=== PATIENT | female | born 1950 | race Caucasian/White ===

== ENCOUNTER → 2017-08-30 | Outpatient (CLI) | payer OTHER ==
[2017-08-30] VITALS (13 sets, daily range): BP systolic 107–145; BP diastolic 45–75
[~2017-08-30] VITALS: Ht 154.9 cm; Wt 77.1 kg
[~2017-08-30] MED LIST: ASPIRIN325 PO; CARVEDILOL12.5 MG PO; CLONIDINE0.1 PO; IMDUR 30 MG TAB30 M1 PO; LASIX 40 MG TAB40 M2 PO; LEXAPRO20 MG; NITROGLYCERIN0.4 MG SUBLING; NORVASC 2.5 MG2.5 M1; NORVASC10 MG PO; OMEPRAZOLE40 MG PO; PAXIL10 MG PO; POLYMYXIN B/TMP10 ML OP; PRINIVIL20 MG PO; VITAMIN D250000 UNIT PO; XANAX 0.5 MG0.5 MG PO; ZANTAC 150MG T150 MG PO
[2017-08-30 08:25] LABS: HEMATOCRIT 37.8 % (37.0-47.0); HEMOGLOBIN 13.1 gm/dL (12.0-15.0); MCH 30.1 pg (26.0-34.0); MCHC 34.7 g/dL (28.0-37.0); MCV 86.6 fL (80.0-100.0); MPV 8.4 fl. (7.2-11.1); RBC 4.36 mil/uL (4.20-5.00); WBC 8.3 thou/uL (4.0-11.0)
[2017-08-30 08:36] LABS: PROTIME 9.4 Seconds (9.20-11.50)
[2017-08-30 08:37] LABS: ANION GAP 9 mmol/L (7-16); BUN 22 mg/dL (7-18); CALCIUM 8.8 mg/dL (8.5-10.1); CHLORIDE 109 mmol/L (98-107); CO2 27 mmol/L (21-32); CREATININE 0.8 mg/dL (0.6-1.3); GLUCOSE 131 mg/dL (70-99); POTASSIUM 3.5 mmol/L (3.5-5.1); SODIUM 145 mmol/L (136-145)
[2017-08-30 08:42] LABS: ALBUMIN 3.9 g/dL (3.4-5.0); ALKALINE PHOSPHATASE 85 U/L (46-116); CHOLESTEROL 180 mg/dL (<200); HDL CHOLESTEROL 43 mg/dL (>40); LDL CHOLESTEROL 108 mg/dL (<100); SERUM ASSESSMENT Clear; SGOT 15 U/L (15-37); SGPT 22 U/L (30-65); TC:HDL 4.2 Ratio (Not establshd); TOTAL BILIRUBIN 0.4 mg/dL (<0.1-1.0); TRIGLYCERIDE 145 mg/dL (<150); VLDL 29 mg/dL (<40)
--- NOTE | 2017-08-30 16:18 | EKG ---
[place] [address] ELECTROCARDIOGRAM REPORT Name: MARIA ELENA MOLINA Room: [facility]#: [id number] Admission: 08/30/17 Attend Phys: Tha Rodas MD, Discharge: Date of : 54 Report #: [id number] THIS REPORT FOR: //name// [facility] Test Date: 2017-08-30 Test Time: 08:53:45 Pat Name: MARIA ELENA MOLINA Department: Room: Gender: F [employer] Field Agent: : 1950 Requested By: Tha Rodas Order Number: [id number] Reading MD: Tha Rodas Measurements Intervals [place] Rate: 65 P: 56 DE: 158 QRS: 21 QRSD: 108 T: 18 QT: 431 QTc: 449 Interpretive Statements Sinus rhythm Compared to ECG 09/11/2015 15:06:08 ST (T wave) deviation no longer present Electronically Signed On 08-30-2017 16:18:25 [employer] by Tha Rodas [email or web address] <ELECTRONICALLY SIGNED> By: Tha Rodas MD, [facility] 08/30/17 1618 [id number] Tha Rodas MD, FACC /EPI
--- NOTE | 2017-08-30 17:00 | CARD ---
[address] [address] CARDIAC CATH REPORT Name: MARIA ELENA MOLINA Room: [facility]#: [id number] Admission: 08/30/17 Attend Phys: Tha Rodas MD, Discharge: Date of : 54 Report #: [id number] THIS REPORT FOR: //name// APPROVED REPORT Patient Details Patient Status: Out-Patient Room #: The patient is a 67 year-old female Event Personnel Dr. Rodas Procedures Performed Left heart catheterization left ventricular and selective coronary arteriography Indication Chest pain Risk Factors Arterial Hypertension, Family History Procedure Narrative The patient was brought electively to the Cardiac Catheterization Laboratory and was prepped and draped in a sterile manner. The right femoral was infiltrated with 1% Lidocaine subcutaneous anesthesia. A 6 Polish sheath was inserted into the right femoral artery. Coronary angiography was performed using coronary diagnostic catheters. The right coronary system was accessed and visualized with a Diagnostic catheter. The left coronary system was accessed and visualized with a Diagnostic catheter. The left ventricle was accessed and visualized with a Diagnostic catheter. Left ventricular/Aortic Valve gradient assessed via catheter pullback. Left ventriculogram was performed in COLIN projection. Pre-demployment femoral angiogram was performed . Closure device was deployed with a 6 Fr Mynx. The patient tolerated the procedure well and there were no complications associated with the procedure. There was no hematoma. Diagnostic Cath Left Main 0% narrowing LAD 20% mid vessel narrowing Circumflex Codominant vessel with 0% narrowing Right Coronary Small but codominant vessel with 0% narrowing Ramus 30- 40% proximal narrowing of a small ramus intermedius [address] [address] CARDIAC CATH REPORT Name: MARIA ELENA MOLINA [id number] Admission: 08/30/17 Attend Phys: Tha Rodas MD, Discharge: Date of : 54 Report #: [id number] Left Ventriculography The left ventricle is normal in size with normal contractility. The left ventricular ejection fraction is estimated to be 60%. Left ventricular wall motion abnormalities are not present. There is no mitral insufficiency. Hemodynamics The aortic pressure is 140/70 mmHg with a mean of 85 mmHg. The left ventricular pressure is 140/8 end-diastolic mmHg with a mean of mmHg. The left ventricular end diastolic pressure is 8 mmHg. There was no gradient across the aortic valve upon pullback. Conclusion #1 mild coronary artery disease characterized by the following: A 20% mid LAD narrowing, B 30-40% narrowing of the proximal portion of a small ramus intermedius branch, C normal left main codominant circumflex and codominant right coronary arteries #2 normal left-sided hemodynamics study, #3 normal left ventricular systolic function, estimated ejection fraction being 60%. Recommendations Cardiac Risk Reduction Program <ELECTRONICALLY SIGNED> By: Tha Rodas MD, [facility] 08/30/171699 99 99Johannah Rodas MD, [facility] /INF
== END | disposition home or self-care (01) ==
LOC: M.CL 07:30
PROVIDERS: Internal Medicine
DX: I25.10 Atherosclerotic heart disease of native coronary artery without angina pectoris (principal); I10 Essential (primary) hypertension; E78.5 Hyperlipidemia, unspecified; Z90.49 Acquired absence of other specified parts of digestive tract; Z90.710 Acquired absence of both cervix and uterus; Z98.890 Other specified postprocedural states; Z88.0 Allergy status to penicillin; Z79.899 Other long term (current) drug therapy

== ENCOUNTER → 2017-11-21 | Outpatient (CLI) | payer OTHER ==
--- NOTE | 2017-11-29 09:01 | SLEEP ---
[address] [address] SLEEP STUDY REPORT Name: MARIA ELENA MOLINA Room: [facility]#: [id number] Admission: 11/21/17 Attend Phys: Marley Prieto RN Discharge: Date of : 54 Report #: [id number] THIS REPORT FOR: //name// CC: Jay Prieto This study has been reviewed in its entirety by a board certified sleep specialist DATE OF SERVICE: 11/21/2017 REQUESTING PROVIDER: Marley Prieto, nurse practitioner. Polysomnography was performed. Study was done for complaints of daytime sleepiness. Does not feel rested in the morning. Snoring has been noted. Weight per the patient is 175 pounds. Vader sleepiness scale was 8/24. Total study time was 476 minutes. Total sleep time 369 minutes. 12% of the time was spent in REM sleep. Sleep efficiency 78%. During the study, there were total of 26 obstructive apneas and 1 mixed apnea. That resulted in a total of 27 apneas. There were 27 hypopneas. Total apnea-hypopnea index was 8.8. However, the apnea-hypopnea index for REM sleep was 46.7. The patient spent much of her time right-sided positioning with some additional time spent supine. There were 148 periodic limb movements noted. Only 9 of these were associated with an arousal. The PLMS arousal index was 1.5. Some snoring was noted. Lowest observed O2 saturation was 81%. However, overall her O2 saturations remained greater than 90%. IMPRESSION: 1. This study does reveal evidence of mild obstructive sleep apnea. However, the apnea-hypopnea index is markedly elevated during REM sleep. 2. Periodic limb movements noted. However, the majority of these were not associated with an arousal. RECOMMENDATIONS: 1. Given her sleep complaints, a return to the sleep lab for CPAP/BiPAP titration may be beneficial. 2. Achieve and maintain [place] [address] SLEEP STUDY REPORT Name: MARIA ELENA MOLINA Room: [facility]#: [id number] Admission: 11/21/17 Attend Phys: Marley Prieto RN Discharge: Date of : 54 Report #: [id number] 3. The patient should be counseled on driving and performing activities which require concentration until her sleep complaints are addressed. <ELECTRONICALLY SIGNED> By: Parminder Sanchez MD 11/29/17 0901 [id number] [id number] Quintero MD /nt
== END ==
LOC: M.SLEEPLAB 19:53
DX: G47.30 Sleep apnea, unspecified (principal); I10 Essential (primary) hypertension

== ENCOUNTER 2021-03-28 20:26 | Emergency (ER) | payer OTHER ==
[~2021-03-28] VITALS: Ht 157.5 cm; Wt 59.0 kg
[2021-03-28 21:18] LABS: ABSOLUTE LYMPHOCYTES 1.4 thou/uL (0.8-5.3); ABSOLUTE MONOCYTES 0.5 thou/uL (0.0-1.2); ABSOLUTE NEUTROPHILS 3.5 thou/uL (1.6-8.1); BASOPHILS 0.4 %; EOSINOPHILS 0.2 %; HEMATOCRIT 33.6 % (37.0-47.0); HEMOGLOBIN 11.9 gm/dL (12.0-15.0); LYMPHOCYTES 25.6 %; MCH 29.8 pg (26.0-34.0); MCHC 35.3 g/dL (28.0-37.0); MCV 84.3 fL (80.0-100.0); MONOCYTES 9.7 %; MPV 8.6 fl. (7.2-11.1); NUCLEATED RBCS 0 /100WBC; PLATELET COUNT* 189 thou/uL (150-400); POLYS 64.1 %; RBC 3.99 mil/uL (4.20-5.00); RDW-CV 13.1 % (10.5-14.5); WBC 5.4 thou/uL (4.0-11.0)
[2021-03-28 21:20] LABS: CALCIUM 8.5 mg/dL (8.5-10.1); CREATININE 0.8 mg/dL (0.6-1.3); POTASSIUM 4.1 mmol/L (3.5-5.1)
[2021-03-28 21:25] LABS: ALBUMIN 3.5 g/dL (3.4-5.0); TOTAL BILIRUBIN 0.6 mg/dL (<0.1-1.0); TOTAL PROTEIN 6.3 g/dL (6.4-8.2)
[2021-03-28 22:04] LABS: URINE BILIRUBIN NEGATIVE (Negative); URINE BLOOD NEGATIVE (Negative); URINE CLARITY CLEAR; URINE COLOR YELLOW; URINE GLUCOSE-RANDOM NEGATIVE (Negative); URINE KETONES 1+ (Negative); URINE LEUKOCYTES-REFLEX 1+ (Negative); URINE PROTEIN NEGATIVE (Negative); URINE SPECIFIC GRAVITY 1.015 (1.005-1.030)
[2021-03-28 22:05] LABS: URINE NITRITE-REFLEX POSITIVE (Negative)
[2021-03-28 22:10] LABS: BACTERIA-REFLEX >30 Many /HPF (None Seen); CASTS None Seen /LPF (None Seen); CRYSTALS None Seen /LPF (None Seen); SQUAMOUS 0-3 Few /LPF (0-3); URINE RBC 0-2 Rare /HPF (0-2); URINE WBC-REFLEX 0-5 Rare /HPF (0-5)
[2021-03-28] MEDS ORDERED: LEVOFLOXACIN750 MG PO (23:05)
[2021-03-28] MEDS ORDERED: PROAIR HFA8.5 GM INH (23:05)
[2021-03-28] MEDS ORDERED: ZOFRAN ODT4 MG PO (23:05)
[2021-03-28 23:12] VITALS: BP 142/70
== END 2021-03-28 23:12 | disposition home or self-care (01) ==
LOC: M.ERS 20:26
PROVIDERS: Emergency Medicine
DX: U07.1 COVID-19 (principal); J12.82 Pneumonia due to coronavirus disease 2019; J96.90 Respiratory failure, unspecified, unspecified whether with hypoxia or hypercapnia; N39.0 Urinary tract infection, site not specified; Z88.0 Allergy status to penicillin

== ENCOUNTER → 2021-06-23 | Outpatient (CLI) | payer OTHER ==
[~2021-06-23] MED LIST changes: +LEVOFLOXACIN750 MG PO; +PROAIR HFA8.5 GM INH; +ZOFRAN ODT4 MG PO
--- NOTE | 2021-06-23 16:06 | CARDNUC ---
[place] [address] CARDIAC NUCLEAR IMAGING REPORT Name: JASWINDERALEMARIA ELENA Room: [facility]#: [id number] Admission: 06/23/21 Attend Phys: Ralph Tinoco, Discharge: Date of : 54 Date of Service: 06/23/21 1605 Report #: [id number] THIS REPORT FOR: cc: Jay Luciano MD, Bruce D. MD Liston, Michael J. MD [facility] ~ APPROVED REPORT Study performed: 06/23/2021 11:08:28 Exam: Nuclear Stress Test Indication: Chest pain Patient Location: Out-Patient Stress Nurse: Elisabeth Samuels RN Ht: 5 ft 2 in Wt: 141 lbs BSA: 1.65 m2 BMI: 25.78 Medical History Medical History: HTN, post covid Medications: ntg, carvedilol, lisinopril, clonidine, Allergies: penicillin Cardiac Risk Factors: Age, FHX of CAD, HTN Exercise History: Sedentary Meds Held (24 hrs): carvedilol, ntg Stress Test Details Stress Test: Pharmacologic stress testing performed using 0.4 mg of regadenoson per 5 mL given IV over 10 seconds. Reason for pharmacologic stress test: physical limitation. HR Resting HR: 73 bpm Max Heart Rate (APMHR): 151 bpm Max HR Achieved: 96 bpm Target HR (85% APMHR): 128 bpm % of APMHR: 63 Recovery HR: 85 bpm BP Resting BP: 187/80 mmHg Max BP: 175/85 mmHg ECG Resting ECG: Sinus rhythm with incomplete left bundle branch block and nonspecific ST segment [place] [address] CARDIAC NUCLEAR IMAGING REPORT Name: MARIA ELENA MOLINA Room: [facility]#: [id number] Admission: 06/23/21 Attend Phys: Ralph Tinoco, Discharge: Date of : 54 Date of Service: 06/23/21 1605 Report #: [id number] Stress ECG: Sinus rhythm with incomplete left bundle branch block and nonspecific ST segment and T wave abnormalities. ST Change: None Arrhythmia: None Recovery ECG: Sinus rhythm with incomplete left bundle branch block and nonspecific ST segment and T wave abnormalities. Recovery ST Change: None Recovery Arrhythmia: None Clinical Reason for Termination: Completed protocol The patient tolerated Lexiscan infusion without significant cardiac complaint. Nurse Comments pt walks with cane and cannot walk on treadmill Stress ECG Conclusion Baseline twelve-lead EKG shows a sinus rhythm with incomplete left bundle branch block and nonspecific ST segment/T wave abnormalities. EKGs obtained during and post Lexiscan infusion show no significant ST segment changes. There were no stress-induced arrhythmias. NM EXAM: Myocardial Perfusion REST/STRESS Resting Data Rest SPECT myocardial perfusion imaging was performed in supine position 30 minutes following the intravenous injection of 10.3 mCi of Tc-99m Sestamibi. Time of rest injection: 10:00 The images were gated to evaluate regional wall motion and calculate left ventricular ejection fraction. Administration Route: IV Administration Site: Right AC Pharmacologic Stress Pharmacologic stress test was performed by injecting Regadenoson 0.4 mg IV push followed by the intravenous injection of 35.2 mCi of Tc-99m Sestamibi. Time of stress injection: 11:10 Administration Route: IV Administration Site: Right AC Heart Rate at time of stress injection: 96 bpm. Gated Stress SPECT was performed 60 minutes after stress injection. The images were gated to evaluate regional wall [place] [address] CARDIAC NUCLEAR IMAGING REPORT Name: MARIA ELENA MOLINA Room: [facility]#: [id number] Admission: 06/23/21 Attend Phys: Ralph Tinoco, Discharge: Date of : 54 Date of Service: 06/23/21 1605 Report #: [id number] left ventricular ejection fraction. Prone imaging was performed. Study Quality Study: Good Artifact: No artifact Study Data At rest, the left ventricular ejection fraction was 56%.. Post stress, the left ventricular ejection was 56%.. TID = 0.92. Perfusion Perfusion images obtained at rest and post Lexiscan stress show no significant defect to suggest infarct or ischemia. Wall Motion Global LV systolic function is preserved. There is a septal wall motion abnormality noted of uncertain significance. Nuclear Conclusion ECG Findings: non-diagnostic Clinical Findings: negative for ischemia Nuclear Findings: negative for ischemia Exercise Capacity: not assessed Left Ventricular Function: Preserved Risk Study: low Perfusion images show no defect to suggest infarct or ischemia. Left ventricular systolic function appears preserved. This is a low risk study. <Conclusion> Baseline twelve-lead EKG shows a sinus rhythm with incomplete left bundle branch block and nonspecific ST segment/T wave abnormalities. EKGs obtained during and post Lexiscan infusion show no significant ST segment changes. There were no stress-induced arrhythmias. <ELECTRONICALLY SIGNED> By: Ralph Tinoco MD, FACC 06/23/21 1605 1605 1605 Ralph Tinoco MD, FACC /INF
--- NOTE | 2021-06-23 16:42 | 2DMMODE ---
[place] [address] 2 D/M-MODE ECHOCARDIOGRAM Name: MARIA ELENA MOLINA Room: [facility]#: [id number] Admission: 06/23/21 Attend Phys: Ralph Tinoco, Discharge: Date of : 54 Date of Service: 06/23/21 1642 Report #: [id number] THIS REPORT FOR: cc: Jay Luciano MD, Bruce D. MD Blick, David R. MD [facility] ~ APPROVED REPORT Study performed: 06/23/2021 12:28:09 EXAM: Comprehensive 2D, Doppler, and color-flow Echocardiogram Patient Location: Out-Patient BSA: 1.64 HR: 69 bpm BP: 180/80 mmHg Other Information Study Quality: Good Indications Chest Pain 2D Dimensions IVSd: 11.29 (7-11mm) LVOT Diam: 20.21 (18-24mm) LVDd: 45.61 mm PWd: 11.31 (7-11mm) Ascending Ao: 28.96 (22-36mm) LVDs: 30.55 (25-40mm) Aortic Root: 29.62 mm Volumes Left Atrial Volume (Systole) LA ESV Index: 13.70 mL/m2 Aortic Valve AoV Peak Phani.: 1.36 m/s AO Peak Gr.: 7.36 mmHg LVOT Max P.58 mmHg AO Mean Gr.: 4.28 mmHg LVOT Mean P.23 mmHg LVOT Max V: 0.80 m/s AO V2 VTI: 29.01 cm LVOT Mean V: 0.51 m/s MARIA R (VTI): 2.03 cm2 LVOT V1 VTI: 18.34 cm Mitral Valve E/A Ratio: 0.57 [place] [address] 2 D/M-MODE ECHOCARDIOGRAM Name: MARIA ELENA MOLINA Room: [facility]#: [id number] Admission: 06/23/21 Attend Phys: Ralph Tinoco, Discharge: Date of : 54 Date of Service: 06/23/21 1642 Report #: [id number] MV Decel. Time: 339.80 ms MV E Max Phani.: 0.58 m/s MV PHT: 98.54 ms MVA (PHT): 2.23 cm2 TDI E/Lateral E': 9.67 E/Medial E': 6.44 Medial E' Phani.: 0.09 m/s Lateral E' Phani.: 0.06 m/s Pulmonary Valve PV Peak Phani.: 0.87 m/s PV Peak Gr.: 3.05 mmHg Left Ventricle The left ventricle is normal size. There is normal LV segmental wall motion. Mild concentric left ventricular hypertrophy. Left ventricular systolic function is normal. The left ventricular ejection fraction is within the normal range. LVEF is 50-55%. Grade I - abnormal relaxation pattern. Right Ventricle The right ventricle is normal size. The right ventricular systolic function is normal. Atria The left atrium size is normal. The right atrium size is normal. Aortic Valve The aortic valve is normal in structure. No aortic regurgitation is present. There is no aortic valvular stenosis. Mitral Valve The mitral valve is normal in structure. Mild mitral regurgitation. No evidence of mitral valve stenosis. Tricuspid Valve The tricuspid valve is normal in structure. There is no tricuspid valve regurgitation noted. Pulmonic Valve The pulmonary valve is normal in structure. There is no pulmonic valvular regurgitation. Great Vessels The aortic root is normal in size. IVC [place] [address] 2 D/M-MODE ECHOCARDIOGRAM Name: MARIA ELENA MOLINA Room: [facility]#: [id number] Admission: 06/23/21 Attend Phys: Ralph Tinoco, Discharge: Date of : 54 Date of Service: 06/23/21 1642 Report #: [id number] collapses >50% with inspiration. Pericardium There is no pericardial effusion. <Conclusion> Mild concentric left ventricular hypertrophy. LVEF is 50-55%. Mild mitral regurgitation. <ELECTRONICALLY SIGNED> By: Philip Garrido MD, [facility] 06/23/211641 41 41 Philip Garrido MD, [facility] /INF
== END ==
LOC: M.CRD 06-17 16:23 → M.NUC 09:00 → M.CRD 07-05 11:00
PROVIDERS: ATTEND Internal Medicine Cardiovascular Disease
DX: I34.0 Nonrheumatic mitral (valve) insufficiency (principal); I25.119 Atherosclerotic heart disease of native coronary artery with unspecified angina pectoris; Z86.16 Personal history of COVID-19